=== PATIENT | female | born 1965 | race Caucasian/White ===

== ENCOUNTER → 2017-05-13 | Outpatient (CLI) | payer OTHER | LOC: M WHC 09:56 | PROVIDERS: ATTEND Nurse Practitioner Family | DX: Z12.31 Encounter for screening mammogram for malignant neoplasm of breast (principal) ==

== ENCOUNTER 2018-05-25 07:52 | Day surgery (SDC) | payer OTHER ==
[~2018-05-25] VITALS: Ht 165.1 cm; Wt 124.9 kg
[~2018-05-25 07:52] MED LIST: ATEN25TA PO; MAXZTA PO; SIMV10TA2 PO; ZYRT10CA5 PO
[2018-05-25] MEDS ORDERED: NS 1,000 ML IV ONE (09:00)
[2018-05-25] MEDS ORDERED: PROPOFOL 200 MG/20 ML VIAL As Ordered ONE (09:51)
[2018-05-25] MEDS ORDERED: LIDOCAINE 2% INJ 100 MG/5 ML SDV (FOR ANES.) As Ordered ONE (09:51)
--- NOTE | 2018-05-25 09:59 | ROOR ---
Patient Name: Giovanna Andrews Procedure Date: 05/25/2018 9:37 AM Date of : 1965 Age: 52 Room: [facility] Gender: Female Note Status: Finalized Procedure: Colonoscopy Indications: Screening in patient at increased risk: Colorectal cancer in father before age 60 Providers: Og DE DIOS MD Referring MD: MARIA EUGENIA BROOKS Requesting Provider: Medicines: Monitored Anesthesia Care Complications: No immediate complications. Procedure: Pre-Anesthesia Assessment: - The heart rate, respiratory rate, oxygen saturations, blood pressure, adequacy of pulmonary ventilation, and response to care were monitored throughout the procedure. The Colonoscope was introduced through the anus and advanced to the terminal ileum, with identification of the appendiceal orifice and IC valve. The colonoscopy was performed without difficulty. The patient tolerated the procedure well. The quality of the bowel preparation was good. Findings: The perianal and digital rectal examinations were normal. Mild to moderate sigmoid diverticulosis and small internal hemorrhoids. Retroflexion in the right colon was performed. The entire examined colon appeared normal on direct and retroflexion views. Impression: - Mild sigmoid diverticulosis and small internal hemorrhoids. - The entire examined colon is normal on direct and retroflexion views. - No specimens collected. Recommendation: - Repeat colonoscopy in 5 years for screening purposes. Og De Dios MD Og DE DOIS MD 05/25/2018 9:58:38 AM This report has been signed electronically. Number of Addenda: 0 Note Initiated On: 05/25/2018 9:37 AM Estimated Blood Loss: Estimated blood loss: none.
[2018-05-25 10:27] VITALS: BP 136/64
== END 2018-05-25 10:28 | disposition home or self-care (01) ==
LOC: M OPP 07:52
PROVIDERS: ATTEND Internal Medicine Gastroenterology
DX: Z12.11 Encounter for screening for malignant neoplasm of colon (principal); K57.30 Diverticulosis of large intestine without perforation or abscess without bleeding; K64.8 Other hemorrhoids; I10 Essential (primary) hypertension; E78.00 Pure hypercholesterolemia, unspecified; Z80.0 Family history of malignant neoplasm of digestive organs; Z79.899 Other long term (current) drug therapy; Z88.8 Allergy status to other drugs, medicaments and biological substances; Z91.040 Latex allergy status; Z87.891 Personal history of nicotine dependence; Z90.710 Acquired absence of both cervix and uterus